=== PATIENT | female | born 1925 | race Caucasian/White ===

== ENCOUNTER 2016-06-03 10:17 | Emergency (ER) | payer OTHER, BC ==
[~2016-06-03] VITALS: Ht 149.9 cm; Wt 54.4 kg
[~2016-06-03 10:17] MED LIST: ADULT LOW DOSE81 MG PO; ARICEPT; ARICEPT 5 MG TAB5 MG PO; ASPIRIN EC81 M1 PO; BISACODYL5 MG PO; CENTRUM TABLET1 TAB PO; CIDATRINE500 MG PO; COUMADIN 1MG TAB1 M1 PO; COUMADIN 2 MG TA2 M1; COUMADIN 2 MG TA2 M1 PO; COUMADIN 5 MG TA5 M1 PO; COUMADIN PO; DITROPAN XL10 M1 PO; FISH OIL 1,0001 EAC5 PO; FISH OIL 1,001000 M2 PO; LOPRESSOR; LOPRESSOR 50 MG50 M1 PO; MAGNESIUM OXID400 MG PO; MIRALAX17 GM PO; MIRAPEX; MIRAPEX OR; NAMENDA 10 MG T10 MG PO; NAMENDA 5 MG TAB5 M1 PO; NEPHROCAPS SOFT1 CAP PO; NORCO 5-325 TA1 EACH PO; OXYBUTYNIN 5 MG5 M1 PO; OXYBUTYNIN 5 MG5 M2 PO; PAIN & FEVER325 MG PO; PRILOSEC 20 MG20 MG PO; PROBIOTIC1 EAC2 PO; REQUIP 0.25 M0.25 MG; REQUIP 1 MG TABL1 M1 PO; REQUIP0.5 MG PO; TAMBOCOR 100 M100 M1 PO; TAMBOCOR PO; TOPROL XL100 MG PO; TOPROL XL25 MG PO; TUMS PO; UNICOMPLEX M TA1 TA1 PO; VITAMIN C 250250 MG PO; VITAMIN D1000 UNI1 PO
[2016-06-03 11:07] LABS: HEMATOCRIT 36.2 % (37.0-47.0); HEMOGLOBIN 12.5 gm/dL (12.0-15.0); MCH 32.4 pg (26.0-34.0); MCHC 34.6 g/dL (28.0-37.0); MCV 93.7 fL (80.0-100.0); RBC 3.86 mil/uL (4.20-5.00); RDW 13.9 % (10.5-14.5); WBC 3.8 thou/uL (4.0-11.0)
[2016-06-03 11:15] LABS: CALCIUM 8.8 mg/dL (8.5-10.1); CREATININE 0.9 mg/dL (0.6-1.0); POTASSIUM 4.1 mmol/L (3.5-5.1)
[2016-06-03 11:19] LABS: INR 2.6; PROTIME 27.3 Seconds (9.3-11.4)
== END 2016-06-03 12:08 | disposition home or self-care (01) ==
LOC: ER 10:17
PROVIDERS: Emergency Medicine
DX: S09.8XXA Other specified injuries of head, initial encounter (principal); F03.90 Unspecified dementia, unspecified severity, without behavioral disturbance, psychotic disturbance, mood disturbance, and anxiety; I10 Essential (primary) hypertension; G89.29 Other chronic pain; I48.91 Unspecified atrial fibrillation; Z86.73 Personal history of transient ischemic attack (TIA), and cerebral infarction without residual deficits; Z85.3 Personal history of malignant neoplasm of breast; F17.210 Nicotine dependence, cigarettes, uncomplicated; F10.99 Alcohol use, unspecified with unspecified alcohol-induced disorder; W22.8XXA Striking against or struck by other objects, initial encounter; Y93.89 Activity, other specified; Y92.89 Other specified places as the place of occurrence of the external cause; Y99.8 Other external cause status

== ENCOUNTER 2016-09-16 11:18 | Emergency (ER) | payer OTHER, BC ==
[~2016-09-16] VITALS: Ht 154.9 cm; Wt 51.7 kg
--- NOTE | ~2016-09-16 | EKG ---
[place] [address] [facility] [place] [address] ELECTROCARDIOGRAM REPORT Name: SUNDAY SULTANA [id number] Admission: 09/16/16 Attend Phys: Discharge: 09/16/16 Date of : [birth year] Report #: [id number] THIS REPORT FOR: //name// [facility] ED Test Date: 2016-09-16 Test Time: 11:19:12 Pat Name: SUNDAY SULTANA Department: Room: 170 Gender: F [employer] Feedback: Mari CHAIDEZ : 1925 Requested By: Russ Stroud Order Number: [id number] MD: Paulie Balderas Measurements Intervals [place] Rate: 73 P: MS: QRS: -39 QRSD: 93 T: 134 QT: 434 QTc: 479 Interpretive Statements Atrial fibrillation Ventricular premature complex LVH with secondary repolarization abnormality Poor R wave progression Baseline wander in lead(s) I,III,aVL Compared to ECG 04/25/2015 22:55:00 Ventricular premature complex(es) now present Electronically Signed On 09-17-2016 9:08:01 CDT by Paulie Balderas [email or web address] <ELECTRONICALLY SIGNED> By: Paulie Balderas MD, FACC 09/17/16 [id number] Paulie Balderas MD, [facility] /EPI
[~2016-09-16 11:18] MED LIST changes: +ULTRAM 50MG TAB50 MG PO
[2016-09-16 11:19] VITALS: BP 144/74
[2016-09-16 12:47] LABS: BASOPHILS 0.9 % (0.0-2.0); EOSINOPHILS 1.3 % (0.0-3.0); HEMATOCRIT 30.8 % (37.0-47.0); HEMOGLOBIN 10.8 gm/dL (12.0-15.0); MCH 33.3 pg (26.0-34.0); MCHC 35.2 g/dL (28.0-37.0); MCV 94.5 fL (80.0-100.0); MONOCYTES 5.7 % (1.0-8.0); PLATELET COUNT 171 thou/uL (150-400); POLYS 69.1 % (36.0-66.0); RBC 3.25 mil/uL (4.20-5.00); RDW 14.5 % (10.5-14.5); WBC 4.4 thou/uL (4.0-11.0)
[2016-09-16 12:50] LABS: MANUAL DIFF NO
[2016-09-16 13:01] LABS: APTT 32.9 Seconds (24.5-32.8); INR 2.5; PROTIME 24.8 Seconds (9.3-11.4)
[2016-09-16 13:03] LABS: ANION GAP 8 mmol/L (7-16); BUN 27 mg/dL (7-18); CALCIUM 8.8 mg/dL (8.5-10.1); CHLORIDE 105 mmol/L (98-107); CO2 28 mmol/L (21-32); CREATININE 0.9 mg/dL (0.6-1.0); GLUCOSE 99 mg/dL (74-106); POTASSIUM 4.2 mmol/L (3.5-5.1); SODIUM 141 mmol/L (136-145)
[2016-09-16 13:14] LABS: ALBUMIN 3.2 g/dL (3.4-5.0); ALKALINE PHOSPHATASE 69 U/L (46-116); CK-MB MASS 1.8 ng/mL (<0.5-3.6); MAGNESIUM 2.1 mg/dL (1.8-2.4); NT-PRO BRAIN NAT PEPTIDE 3085 pg/mL (<300); SGOT 29 U/L (15-37); SGPT 40 U/L (30-65); TOTAL BILIRUBIN 0.4 mg/dL (<0.1-1.0); TOTAL PROTEIN 6.5 g/dL (6.4-8.2); TROPONIN-I < 0.04 ng/mL (<0.04-0.07)
[2016-09-16] MEDS ORDERED: NITROGLYCERIN0.4 MG SUBLING (13:57)
[2016-09-16 14:57] VITALS: BP 125/59
== END 2016-09-16 14:59 | disposition still patient (30) ==
LOC: ER 11:18 → EROBS 13:30 → ER 14:59
PROVIDERS: Emergency Medicine
DX: R07.9 Chest pain, unspecified (principal); F03.90 Unspecified dementia, unspecified severity, without behavioral disturbance, psychotic disturbance, mood disturbance, and anxiety; I10 Essential (primary) hypertension; G25.81 Restless legs syndrome; I48.91 Unspecified atrial fibrillation; G89.29 Other chronic pain; M54.9 Dorsalgia, unspecified; F10.99 Alcohol use, unspecified with unspecified alcohol-induced disorder; Z86.2 Personal history of diseases of the blood and blood-forming organs and certain disorders involving the immune mechanism; Z85.3 Personal history of malignant neoplasm of breast; Z86.73 Personal history of transient ischemic attack (TIA), and cerebral infarction without residual deficits; Z87.891 Personal history of nicotine dependence

== ENCOUNTER 2016-09-26 11:04 | Emergency (ER) | payer OTHER, BC ==
[~2016-09-26] VITALS: Ht 152.4 cm; Wt 50.8 kg
[~2016-09-26 11:04] MED LIST changes: +NITROGLYCERIN0.4 MG SUBLING
[2016-09-26 11:21] LABS: ABSOLUTE NEUTROPHILS 3.2 thou/uL (1.4-8.2); BASOPHILS 1.6 % (0.0-2.0); HEMATOCRIT 32.7 % (37.0-47.0); HEMOGLOBIN 11.1 gm/dL (12.0-15.0); LYMPHOCYTES 22.6 % (24.0-44.0); MCH 32.2 pg (26.0-34.0); MCHC 33.8 g/dL (28.0-37.0); MCV 95.4 fL (80.0-100.0); MONOCYTES 6.5 % (1.0-8.0); PLATELET COUNT 169 thou/uL (150-400); POLYS 68.3 % (36.0-66.0); RBC 3.43 mil/uL (4.20-5.00); RDW 14.4 % (10.5-14.5); WBC 4.7 thou/uL (4.0-11.0)
[2016-09-26 11:22] LABS: MANUAL DIFF NO
[2016-09-26 11:29] LABS: ANION GAP 6 mmol/L (7-16); BUN 20 mg/dL (7-18); CALCIUM 8.8 mg/dL (8.5-10.1); CHLORIDE 101 mmol/L (98-107); CO2 26 mmol/L (21-32); CREATININE 0.9 mg/dL (0.6-1.0); GLUCOSE 105 mg/dL (74-106); POTASSIUM 3.8 mmol/L (3.5-5.1); SODIUM 133 mmol/L (136-145)
[2016-09-26 11:34] LABS: INR 2.2
[2016-09-26 11:36] LABS: PROTIME 22.7 Seconds (9.3-11.4)
[2016-09-26 11:39] LABS: ALBUMIN 3.3 g/dL (3.4-5.0); ALKALINE PHOSPHATASE 74 U/L (46-116); SGOT 26 U/L (15-37); SGPT 34 U/L (30-65); TOTAL BILIRUBIN 0.5 mg/dL (<0.1-1.0); TOTAL PROTEIN 6.7 g/dL (6.4-8.2); TROPONIN-I < 0.04 ng/mL (<0.04-0.07)
[2016-09-26 12:03] LABS: URINE BILIRUBIN NEGATIVE (Negative); URINE BLOOD NEGATIVE (Negative); URINE COLOR YELLOW; URINE GLUCOSE-RANDOM* NEGATIVE (Negative); URINE KETONES NEGATIVE (Negative); URINE NITRITE NEGATIVE (Negative); URINE PROTEIN (DIPSTICK) NEGATIVE (Negative); URINE SPECIFIC GRAVITY <= 1.005 (1.003-1.035); URINE UROBILINOGEN 0.2 E.U./dl (0.2-1.0)
== END 2016-09-26 12:31 | disposition home or self-care (01) ==
LOC: ER 11:04
PROVIDERS: Physician Assistant
DX: R41.0 Disorientation, unspecified (principal); G45.9 Transient cerebral ischemic attack, unspecified; I10 Essential (primary) hypertension; I48.91 Unspecified atrial fibrillation; F03.90 Unspecified dementia, unspecified severity, without behavioral disturbance, psychotic disturbance, mood disturbance, and anxiety; Z87.891 Personal history of nicotine dependence

== ENCOUNTER 2016-11-24 07:57 | Inpatient (IN) | payer OTHER, BC ==
[~2016-11-24] VITALS: Ht 152.4 cm; Wt 52.2 kg
[2016-11-24 07:59] VITALS: BP 158/86
[2016-11-24 08:18] LABS: HEMATOCRIT 33.9 % (37.0-47.0); MCH 33.4 pg (26.0-34.0); MCHC 35.4 g/dL (28.0-37.0); MCV 94.5 fL (80.0-100.0); RBC 3.59 mil/uL (4.20-5.00); RDW 14.8 % (10.5-14.5); WBC 5.5 thou/uL (4.0-11.0)
[2016-11-24 08:19] LABS: CREATININE 0.5 mg/dL (0.6-1.0)
[2016-11-24 08:28] LABS: INR 2.6; PROTIME 26.3 Seconds (9.3-11.4)
[2016-11-24] MEDS ORDERED: COQ-10100 MG PO (08:59)
[2016-11-24] MEDS ORDERED: VITAMIN D1000 UNI1 PO (08:59)
[2016-11-24 09:17] VITALS: BP 165/85
[2016-11-24 10:02] VITALS: BP 143/54
[2016-11-24 10:33] VITALS: BP 154/84
[2016-11-24 16:28] VITALS: BP 147/66
[2016-11-24 19:45] VITALS: BP 160/82
[2016-11-25 03:50] VITALS: BP 143/94
[2016-11-25 03:52] LABS: INR 2.8; PROTIME 28.1 Seconds (9.3-11.4)
[2016-11-25 11:32] LABS: TSH 1.48 uIU/mL (0.358-3.740)
[2016-11-25 12:00] VITALS: BP 132/90
[2016-11-25 16:17] VITALS: BP 92/61
[2016-11-25 20:58] VITALS: BP 122/62
[2016-11-26 04:07] VITALS: BP 154/85
[2016-11-26 06:19] LABS: INR 3.2; PROTIME 32.4 Seconds (9.3-11.4)
[2016-11-26 16:00] VITALS: BP 153/71
[2016-11-26 19:32] VITALS: BP 150/56
[2016-11-27 05:32] VITALS: BP 137/78
[2016-11-27 06:47] LABS: INR 3.5; PROTIME 35.3 Seconds (9.3-11.4)
[2016-11-27 07:02] LABS: ALBUMIN 2.7 g/dL (3.4-5.0); CREATININE 0.7 mg/dL (0.6-1.0); PHOSPHORUS 2.9 mg/dL (2.5-4.9); POTASSIUM 4.3 mmol/L (3.5-5.1)
[2016-11-27 07:05] LABS: CALCIUM 8.5 mg/dL (8.5-10.1)
[2016-11-27 08:54] VITALS: BP 103/44
[2016-11-27] MEDS ORDERED: COUMADIN 2.5MG2.5 M1 PO (10:07)
[2016-11-27] MEDS ORDERED: ULTRACET TABLET1 TAB PO (10:08)
[2016-11-27] MEDS ORDERED: CEFUROXIME250 MG PO (10:12)
== END 2016-11-27 15:27 | DRG 183 ==
LOC: ER 07:57 → 4N 09:19 → EROBS 09:19 → 4N 10:12
PROVIDERS: Emergency Medicine; Hospitalist
DX: S22.42XA Multiple fractures of ribs, left side, initial encounter for closed fracture (principal); G93.40 Encephalopathy, unspecified; N39.0 Urinary tract infection, site not specified; E87.1 Hypo-osmolality and hyponatremia; F03.90 Unspecified dementia, unspecified severity, without behavioral disturbance, psychotic disturbance, mood disturbance, and anxiety; I10 Essential (primary) hypertension; G25.81 Restless legs syndrome; G89.29 Other chronic pain; K59.00 Constipation, unspecified; M54.9 Dorsalgia, unspecified; W06.XXXA Fall from bed, initial encounter; I48.91 Unspecified atrial fibrillation; Z86.73 Personal history of transient ischemic attack (TIA), and cerebral infarction without residual deficits; Z85.3 Personal history of malignant neoplasm of breast; Z79.899 Other long term (current) drug therapy; Z87.891 Personal history of nicotine dependence; Y93.89 Activity, other specified; Y92.098 Other place in other non-institutional residence as the place of occurrence of the external cause; Y99.8 Other external cause status
CPT/HCPCS: 10091